=== PATIENT | female | born 1960 | race Asian ===

== ENCOUNTER 2017-01-15 13:21 | Emergency (ER) | payer BC, OTHER ==
[~2017-01-15] VITALS: Ht 162.6 cm; Wt 80.7 kg
[2017-01-15 15:10] LABS: SODIUM 135 mmol/L (136-145)
[2017-01-15 15:21] LABS: PLATELET COUNT 313 K/uL (152-353)
[2017-01-15 15:38] VITALS: BP 110/73; TEMP 97.7
== END 2017-01-15 15:38 | disposition home or self-care (01) ==
LOC: ED 13:21
DX: S16.1XXA Strain of muscle, fascia and tendon at neck level, initial encounter (principal); S39.012A Strain of muscle, fascia and tendon of lower back, initial encounter; V43.52XA Car driver injured in collision with other type car in traffic accident, initial encounter
CPT/HCPCS: 36415; 80053; 80320; 81000; 85027; 96372; 99283; J1020; J1100; J1885

== ENCOUNTER 2017-04-21 09:13 | Emergency (ER) | payer BC ==
[~2017-04-21] VITALS: Ht 160 cm; Wt 80.7 kg
[2017-04-21 09:15] VITALS: TEMP 97
[2017-04-21] MEDS ORDERED: GLIM4TAB PO (09:38)
[2017-04-21] MEDS ORDERED: HYZAAR1 TA1 PO (09:38)
[2017-04-21] MEDS ORDERED: METFORMIN ER1000 MG PO (09:39)
[2017-04-21] MEDS ORDERED: SIMV10TA PO (09:41)
[2017-04-21] MEDS ORDERED: HYDR10TA51 PO (09:43)
[2017-04-21 09:50] LABS: PLATELET COUNT 383 K/uL (152-353)
[2017-04-21 10:14] LABS: POTASSIUM 3.7 mmol/L (3.6-5.2); SODIUM 130 mmol/L (136-145)
[2017-04-21 10:27] LABS: PARTIAL THROMBOPLASTIN TIME 25.4 SECONDS (24.5-33.6)
[2017-04-21 13:09] VITALS: BP 117/73
== END 2017-04-21 13:10 | disposition home or self-care (01) ==
LOC: ED 09:13
PROVIDERS: Family Medicine
DX: R00.0 Tachycardia, unspecified (principal); E11.65 Type 2 diabetes mellitus with hyperglycemia; R11.0 Nausea
CPT/HCPCS: 36415; 80053; 82550; 84484; 85027; 85610; 85730; 93005; 96360; 96372; 96374; 96375; 99284; J1170; J1815; J2405; J2550

== ENCOUNTER 2017-09-16 13:38 | Outpatient (CLI) | payer BC, OTHER ==
[~2017-09-16 13:38] MED LIST: GLIM4TAB PO; HYDR10TA51 PO; HYZAAR1 TA1 PO; METFORMIN ER1000 MG PO; SIMV10TA PO
== END 2017-09-16 23:50 | disposition home or self-care (01) ==
LOC: MRI 13:38
DX: M25.512 Pain in left shoulder (principal)

== ENCOUNTER 2018-06-19 10:18 | Outpatient (CLI) | payer OTHER | END 2018-06-19 19:33 | disposition home or self-care (01) | LOC: MAMMO 10:18 | DX: Z12.31 Encounter for screening mammogram for malignant neoplasm of breast (principal) ==

== ENCOUNTER 2019-07-08 12:13 | Outpatient (CLI) | payer OTHER ==
[2019-07-08 12:49] LABS: PLATELET COUNT 394 K/uL (152-353)
[2019-07-08 12:55] LABS: POTASSIUM 3.9 mmol/L (3.6-5.2)
== END 2019-07-08 20:10 | disposition home or self-care (01) ==
LOC: LABW 12:13
PROVIDERS: Nurse Practitioner Family
DX: U07.1 COVID-19 (principal)
CPT/HCPCS: 36415; 80053; 85027

== ENCOUNTER 2021-07-03 09:20 | Outpatient (CLI) | payer BC | END 2021-07-03 18:59 | disposition home or self-care (01) | LOC: MAMMO 09:20 | PROVIDERS: ATTEND Nurse Practitioner | DX: Z13.820 Encounter for screening for osteoporosis (principal); N95.8 Other specified menopausal and perimenopausal disorders; Z12.31 Encounter for screening mammogram for malignant neoplasm of breast ==

== ENCOUNTER 2022-03-01 15:00 | Outpatient (CLI) | payer BC | END 2022-03-01 23:39 | disposition home or self-care (01) | LOC: CT 15:00 | PROVIDERS: ATTEND Internal Medicine | DX: R42 Dizziness and giddiness (principal) ==

== ENCOUNTER 2022-04-23 11:32 | Outpatient (CLI) | payer BC | END 2022-04-23 22:02 | disposition home or self-care (01) | LOC: RAD 11:32 | PROVIDERS: ATTEND Physician Assistant | DX: M54.59 Other low back pain (principal); M25.552 Pain in left hip; M54.2 Cervicalgia ==

== ENCOUNTER 2022-08-16 09:28 | Outpatient (CLI) | payer BC | END 2022-08-16 18:53 | disposition home or self-care (01) | LOC: MRI 09:28 | PROVIDERS: ATTEND Physician Assistant | DX: M54.16 Radiculopathy, lumbar region (principal) ==